=== PATIENT | female | born 1990 | race African-American/Black ===

== ENCOUNTER 2017-04-01 07:47 | Emergency (ER) | payer MEDICAID ==
[~2017-04-01] VITALS: Ht 160 cm; Wt 108.9 kg
[2017-04-01 08:46] LABS: APPEARANCE,URINE SLIGHTLY CLOUDY; KETONES,URINE NEGATIVE (NEGATIVE); NITRITE,URINE NEGATIVE (NEGATIVE); PH,URINE 6.5 (4.5-8.0); PROTEIN,URINE 1+ (NEGATIVE); UROBILINOGEN,URINE 1 MG/DL (0.0-1.0)
[2017-04-01 08:49] LABS: LEUKOCYTE ESTERASE ,URINE 2+ (NEGATIVE)
[2017-04-01 08:51] LABS: RBC,URINE 0-2 /HPF (0 - 2); SQUAMOUS EPITHELIAL CELL,UR FEW /LPF (NONE/OCC)
[2017-04-01 09:15] VITALS: BP 127/84
[2017-04-01] MEDS ORDERED: Fluconazole 100mg tab ORAL ONE (09:15)
--- NOTE | 2017-04-01 09:17 | Emergency Room Report ---
History of Present Illness General Chief Complaint: Vaginal Source: Patient Present Illness HPI 26-year-old female presents ED for evaluation. Patient states that she notices some vaginal itching for the last several days. Notes white curdish discharge. Denies any recent sexual activity. Denies any dysuria or hematuria. Denies any pain. Denies any fevers or chills. No aggravating or relieving factors. Denies any other associated symptoms Allergies: Coded Allergies: No Known Allergies (Unverified , 05/25/12) Patient History Past Medical History: none Past Surgical History: none Pertinent Family History: none Social History: Denies: alcohol use, drug use, smoking Last Menstrual Period: oct Now: No Immunizations: UTD Reviewed Nursing Documentation: PMH: Agreed, PSxH: Agreed Nursing Documentation-PMH Past Medical History: No Stated History Review of Systems All Other Systems: negative except mentioned in HPI Physical Exam Vital Signs Date Time Temp Pulse Resp B/P Pulse Ox O2 Delivery O2 Flow Rate FiO2 04/01/17 07:49 98.2 84 18 138/95 98 Room Air Sp02 EP Interpretation: reviewed, normal General Appearance: no apparent distress, alert, GCS 15, non-toxic Head: normocephalic, atraumatic Eyes: bilateral eye PERRL, bilateral eye normal inspection ENT: hearing grossly normal, normal pharynx, no angioedema, normal voice Neck: full range of motion, supple/symm/no masses Respiratory: chest non-tender, lungs clear, normal breath sounds, speaking full sentences Cardiovascular #1: regular rate, rhythm, no edema Cardiovascular #2: 2+ carotid (R), 2+ carotid (L), 2+ radial (R), 2+ radial (L) , 2+ dorsalis pedis (R), 2+ dorsalis pedis (L) Gastrointestinal: normal bowel sounds, non tender, soft, non-distended, no guarding, no rebound Genitourinary: normal inspection, no CVA tenderness Musculoskeletal: back normal, gait/station normal, normal range of motion, non- tender Neurologic: alert, oriented x3, responsive, motor strength/tone normal, sensory intact, speech normal Psychiatric: judgement/insight normal, memory normal, mood/affect normal, no suicidal/homicidal ideation Reflexes: 3+ bicep (R), 3+ bicep (L), 3+ tricep (R), 3+ tricep (L), 3+ knee (R) , 3+ knee (L) Skin: normal color, no rash, warm/dry, well hydrated Lymphatic: no adenopathy Medical Decision Making Diagnostic Impression: Primary Impression: Yeast infection ER Course Hospital Course 26-year-old female presents ED complaining of vaginal itching and discharge Differential diagnoses include: UTI, cystitis, STI, candidiasis Clinical course Patient placed on stretcher. After initial history and physical I ordered UA, urine . UA shows some white cells, but no bacteria. no history suggestive of STI. will treat as yeast infection given diflucan in ED Diagnosis - yeast infection Stable and discharged home. Instructed to followup with PMD. Return to ED if symptoms recur or worsen Labs Test 04/01/17 08:00 Urine Color Yellow Urine Appearance Slightly cloudy Urine pH 6.5 (4.5-8.0) Urine Specific [place] 1.015 (1.005-1.035) Urine Protein 1+ (NEGATIVE) Urine Glucose (UA) Negative (NEGATIVE) Urine Ketones Negative (NEGATIVE) Urine Occult Blood Negative (NEGATIVE) Urine Nitrite Negative (NEGATIVE) Urine Bilirubin Negative (NEGATIVE) Urine Urobilinogen 1 MG/DL (0.0-1.0) Urine Leukocyte Esterase 2+ (NEGATIVE) Urine RBC 0-2 /HPF (0 - 2) Urine WBC 5-10 /HPF (0 - 2) Urine Squamous Epithelial Cells Few /LPF (NONE/OCC) Urine Bacteria None /HPF (NONE) Urine HCG, Qualitative Negative Last Vital Signs Date Time Temp Pulse Resp B/P Pulse Ox O2 Delivery O2 Flow Rate FiO2 04/01/17 07:49 98.2 84 18 138/95 98 Room Air Status: improved Disposition: HOME, SELF-CARE Condition: Stable Patient Instructions: Dysuria NICKIE HERR M.D. Apr 01, 2017 09:17
== END 2017-04-01 09:20 | disposition home or self-care (01) ==
LOC: EMR 08:05
DX: B37.9 Candidiasis, unspecified (principal)
CPT/HCPCS: 81003; 81025; 99282

== ENCOUNTER 2017-12-21 11:30 | Emergency (ER) | payer SELFPAY ==
[~2017-12-21] VITALS: Ht 160 cm; Wt 108.9 kg
[2017-12-21 12:08] VITALS: BP 105/66
[2017-12-21] MEDS ORDERED: Lidocaine 2% Visc 15ml soln ORAL ONE (12:45)
[2017-12-21] MEDS ORDERED: Dicyclomine HCl 10mg/5ml oral soln ORAL ONE (12:45)
[2017-12-21] MEDS ORDERED: Mylanta II UD 30ml ORAL ONE (12:45)
--- NOTE | 2017-12-21 12:58 | Emergency Room Report ---
History of Present Illness General Chief Complaint: Nausea, Vomiting, and Diarrhea Source: Patient (Carol Cooper) Present Illness HPI 27 YO Female Pt. presents to the ED c/o N/V/D x 2 days. Patient estimates approximately 4 episodes of vomiting yesterday and 2 loose bowel movements. Patient denies blood in the vomit or stool she denies black tarry stools. Reports that her boyfriend has similar symptoms. She and states the only difference that she's noticed that she has been having some chest pain that she describes as tightness in the chest for the last 2 days. She locates her pain substernally. She denies cough shortness of breath she reports the pain is intermittent. She rates it as 5 out of 10 in severity. 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 Denies claudication she reports right ankle pain 2 days ago. Denies cough, recent URI, ill contacts, long periods of being sedentary. Denies Palpitations, dizziness, Changes in Vision, Sensation, paresthesias, or a sudden severe headache. (Carol Cooper) Allergies: Coded Allergies: No Known Allergies (Unverified , 05/25/12) Patient History Past Medical History: see triage record Past Surgical History: none Pertinent Family History: none Last Menstrual Period: 4-1 Now: No Reviewed Nursing Documentation: PMH: Agreed; PSxH: Agreed (Carol Cooper) Nursing Documentation-PMH Past Medical History: No Stated History (Carol Cooper) Review of Systems All Other Systems: negative except mentioned in HPI (Carol Cooper) Physical Exam Vital Signs Date Time Temp Pulse Resp B/P (MAP) Pulse Ox O2 Delivery O2 Flow Rate FiO2 12/21/17 11:46 99.1 108 18 103/69 98 Room Air 99.1 Sp02 EP Interpretation: reviewed, normal General Appearance: no apparent distress, alert, GCS 15, non-toxic Head: normocephalic, atraumatic Eyes: bilateral eye normal inspection, bilateral eye PERRL ENT: hearing grossly normal, normal voice Neck: full range of motion Respiratory: chest non-tender, lungs clear, normal breath sounds, no rhonchi, no respiratory distress, no wheezing, speaking full sentences Cardiovascular #1: regular rate, rhythm, no edema, normal capillary refill Gastrointestinal: normal bowel sounds - slightly hyperactive in all 4 quadrants , non tender, soft Rectal: deferred Genitourinary: normal inspection, no CVA tenderness Musculoskeletal: back normal, gait/station normal, normal range of motion, non- tender Neurologic: alert, oriented x3, responsive, motor strength/tone normal, sensory intact, normal gait, speech normal, grossly normal Psychiatric: judgement/insight normal Skin: normal color, no rash, warm/dry, well hydrated (Carol Cooper) Medical Decision Making PA Attestation Dr. Alonzo is my supervising Physician whom patient management has been discussed with. (Carol Cooper) Diagnostic Impression: Primary Impression: Nausea, vomiting, and diarrhea Additional Impression: Nonspecific chest pain ER Course 27 YO Female Pt. presents to the ED c/o N/V/D x 2 days. Patient estimates approximately 4 episodes of vomiting yesterday and 2 loose bowel movements. Patient denies blood in the vomit or stool she denies black tarry stools. Reports that her boyfriend has similar symptoms. She and states the only difference that she's noticed that she has been having some chest pain that she describes as tightness in the chest for the last 2 days. She locates her pain substernally. She denies cough shortness of breath she reports the pain is intermittent. She rates it as 5 out of 10 in severity. 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 Denies claudication she reports right ankle pain 2 days ago. Denies cough, recent URI, ill contacts, long periods of being sedentary. Denies Palpitations, dizziness, Changes in Vision, Sensation, paresthesias, or a sudden severe headache. Ddx considered but are not limited to GE, colitis, acute appy, SBO, Cyclical Vomiting secondary to THC, * , Pneumonitis, esophageal injury, PE, GERD just to name a few. Vital signs: pt. is afebrile, oxygenating at 98% rate at triage was 109. H&PE are most consistent with GE most likely viral in etiology, no evidence to suggest acute abdomen on physical exam. ORDERS: -EKG: Inverted T waves in leads 3 , V3, V4 -D-dimer: WNL -Urine Hcg: Negative -CXR: Unremarkable. ED INTERVENTIONS: -1000 NS iv hydration, -Zofran 4mg -Bentyl, Mylanta and viscous lidocaine -Patient is able to tolerate oral fluids. DISCHARGE: At this time pt. is stable for d/c to home. Will provide printed patient care instructions, and any necessary prescriptions. Care plan and follow up instructions have been discussed with the patient prior to discharge. Labs Test 12/21/17 12:15 12/21/17 13:46 12/21/17 14:35 Urine Color Pale yellow Urine Appearance Clear Urine pH 6 (4.5-8.0) Urine Specific [place] 1.010 (1.005-1.035) Urine Protein Negative (NEGATIVE) Urine Glucose (UA) Negative (NEGATIVE) Urine Ketones Negative (NEGATIVE) Urine Occult Blood 1+ (NEGATIVE) Urine Nitrite Negative (NEGATIVE) Urine Bilirubin Negative (NEGATIVE) Urine Urobilinogen Normal MG/DL (0.0-1.0) Urine Leukocyte Esterase 2+ (NEGATIVE) Urine RBC 0-2 /HPF (0 - 2) Urine WBC 5-10 /HPF (0 - 2) Urine Squamous Epithelial Cells Few /LPF (NONE/OCC) Urine Bacteria Few /HPF (NONE) Urine HCG, Qualitative Negative (NEGATIVE) D-Dimer < 0.19 mg/L FEU Sodium Level 137 MMOL/L (136-145) Potassium Level 2.8 MMOL/L (3.5-5.1) Chloride Level 102 MMOL/L (98-107) Carbon Dioxide Level 28 MMOL/L (21-32) Anion Gap 7 mmol/L (5-15) Blood Urea Nitrogen 5 mg/dL (7-18) Creatinine 0.7 MG/DL (0.55-1.30) Estimat Glomerular Filtration Rate > 60 mL/min (>60) Glucose Level 101 MG/DL (74-106) Calcium Level 8.3 MG/DL (8.5-10.1) Total Bilirubin 0.7 MG/DL (0.2-1.0) Aspartate Amino Transf (AST/SGOT) 14 U/L (15-37) Alanine Aminotransferase (ALT/SGPT) 23 U/L (12-78) Alkaline Phosphatase 95 U/L (46-116) Total Protein 8.3 G/DL (6.4-8.2) Albumin 3.8 G/DL (3.4-5.0) Globulin 4.5 g/dL Albumin/Globulin Ratio 0.8 (1.0-2.7) (Carol Cooper) EKG Diagnostic Results EP Interpretation: Dr. Alonzo Rate: tachycardiac - 109 Rhythm: NSR ST Segments: no acute changes Other Impression Inverted T waves in leads 3 , V3, V4 ASA given to the pt in ED: No PA Scribe Text This Interpretation was scribed by ROWAN Cooper. (Carol Cooper) Chest X-Ray Diagnostic Results Chest X-Ray Diagnostic Results : Chest X-Ray Ordered: Yes # of Views/Limited/Complete: 1 View Indication: Chest Pain EP Interpretation: Yes PA Xray: Interpretation reviewed, by supervising MD, and agrees with findings. Interpretation: no consolidation, no effusion, no pneumothorax, no acute cardiopulmonary disease Impression: No acute disease Electronically Signed by: Carol Cooper PA-C (Carol Cooper) Chest X-Ray Diagnostic Results : Electronically Signed by: Florence documentation reviewed by me and is accurate, Nnamdi Alonzo MD. (Nnamdi Alonzo M.D.) Last Vital Signs Date Time Temp Pulse Resp B/P (MAP) Pulse Ox O2 Delivery O2 Flow Rate FiO2 12/21/17 12:08 98.8 84 18 105/66 98 Room Air 98.8 (Carol Cooper) Disposition: HOME, SELF-CARE Condition: Stable Scripts Famotidine (PEPCID) 20 Mg Tablet 20 MG ORAL BEDTIME, #14 TAB 0 Refills Prov: Carol Cooper 12/21/17 Dicyclomine Hcl* (DICYCLOMINE HCL*) 10 Mg Capsule 10 MG PO QID, #9 CAP Prov: Carol CooperA. 12/21/17 Ondansetron Odt* (ZOFRAN ODT*) 4 Mg Tab.rapdis 4 MG ORAL Q6H PRN for Nausea & Vomiting, #10 TAB Prov: Carol CooperA. 12/21/17 Patient Instructions: Nonspecific Chest Pain, [id number] Additional Instructions: Take medications as directed. Follow up with a Primary Care Provider in 3-5 days, even if your symptoms have resolved. --Please review list of primary care clinics, if you do not already have a primary care provider Return sooner to ED if new symptoms occur, or current symptoms become worse. Do not drink alcohol, drive, or operate heavy machinery while taking [ ] as this may cause drowsiness. - Please note that this Emergency Department Report was dictated using [employer] groove machine feeder technology software, occasionally this can lead to erroneous entry secondary to interpretation by the dictation equipment. Carol Cooper Dec 21, 2017 12:58 Nnamdi Alonzo M.D. Dec 22, 2017 14:49
[2017-12-21 13:09] LABS: APPEARANCE,URINE CLEAR; BILIRUBIN, URINE NEGATIVE (NEGATIVE); COLOR,URINE PALE YELLOW; GLUCOSE, URINE (UA) NEGATIVE (NEGATIVE); KETONES,URINE NEGATIVE (NEGATIVE); LEUKOCYTE ESTERASE ,URINE 2+ (NEGATIVE); NITRITE,URINE NEGATIVE (NEGATIVE); PH,URINE 6 (4.5-8.0); PROTEIN,URINE NEGATIVE (NEGATIVE); UROBILINOGEN,URINE NORMAL MG/DL (0.0-1.0)
--- NOTE | 2017-12-21 13:54 | Diagnostic Imaging Report ---
Indication: Chest pain Technique: One view of the chest Comparison: none Findings: Patient's chin obscures the upper mediastinum. The heart size is normal. Lungs and pleural spaces are clear Impression: No acute process
[2017-12-21 15:04] LABS: ALANINE AMINOTRANSFERASE 23 U/L (12-78); ALBUMIN 3.8 G/DL (3.4-5.0); ALBUMIN/GLOBULIN RATIO 0.8 (1.0-2.7); ALKALINE PHOSPHATASE 95 U/L (46-116); ANION GAP 7 mmol/L (5-15); ASPARTATE AMINO TRANSFERASE 14 U/L (15-37); BILIRUBIN,TOTAL 0.7 MG/DL (0.2-1.0); BLOOD UREA NITROGEN 5 mg/dL (7-18); CALCIUM 8.3 MG/DL (8.5-10.1); CARBON DIOXIDE 28 MMOL/L (21-32); CHLORIDE 102 MMOL/L (98-107); CREATININE 0.7 MG/DL (0.55-1.30); POTASSIUM 2.8 MMOL/L (3.5-5.1); SODIUM 137 MMOL/L (136-145)
[2017-12-21] MEDS ORDERED: PEPCID20 MG ORAL (15:48)
[2017-12-21] MEDS ORDERED: DICYCLOMINE HCL10 MG PO (15:48)
[2017-12-21] MEDS ORDERED: ZOFRAN ODT4 MG ORAL (15:48)
[2017-12-21 16:59] VITALS: BP 112/72
== END 2017-12-21 16:59 | disposition home or self-care (01) ==
LOC: EMR 12:23
DX: R11.2 Nausea with vomiting, unspecified (principal); R19.7 Diarrhea, unspecified; R07.9 Chest pain, unspecified
CPT/HCPCS: 36415; 71045; 80053; 81003; 81025; 85379; 93005; 99284

== ENCOUNTER 2019-01-08 09:33 | Emergency (ER) | payer SELFPAY ==
[~2019-01-08] VITALS: Ht 160 cm; Wt 117.5 kg
[~2019-01-08 09:33] MED LIST: DICYCLOMINE HCL10 MG PO; PEPCID20 MG ORAL; ZOFRAN ODT4 MG ORAL
[2019-01-08 09:43] VITALS: BP 126/73
--- NOTE | 2019-01-08 09:44 | NUR ---
ED Nurse Note: Patient is walked in to ER complaining of itchiness all over the body since Monday. Patient is alert and fully oriented with steady gait. Patient was offered to change to gown for the ERMD to assess the skin but patient refused as stating "There is no visible bump or rash. It is just itchiness all over the body. There is no point of changing because I have nothing to show." Patient is consistently scratching her arms and legs while assessment. Patient denied pain but only itchiness. Skin clean and intact and no skin issue note at this time. Patient denied any food allergy or unusual food eaten on Monday which is the symptom started. Patient is calm and cooperative. No cardiac or pulmonary distress noted at this time.
[2019-01-08] MEDS ORDERED: BENADRYL25 MG ORAL (09:56)
[2019-01-08] MEDS ORDERED: PREDNISONE20 MG ORAL (09:57)
[2019-01-08] MEDS ORDERED: HYDROCORTISONE-30 GM TOPIC (09:57)
[2019-01-08 10:00] VITALS: BP 126/73
--- NOTE | 2019-01-08 10:00 | NUR ---
ER DISCHARGE NOTE: Patient is cleared to be discharged per ERMD, pt is aox4, on room air, with stable vital signs. pt was given dc instructions and prescriptions were sent electronically and pharmacy information was provided, pt was able to verbalize understanding, pt id band removed. pt is able to ambulate with steady gait. pt took all belongings.
--- NOTE | 2019-01-08 10:20 | NUR ---
ED Nurse Note: Patient came back and reported that she could not get the medications from pharmacy because she did not bring her Medical card. Prescriptions were provided instead.
--- NOTE | 2019-01-08 14:27 | Emergency Room Report ---
History of Present Illness General Chief Complaint: Skin Rash/Abscess Source: Patient Present Illness HPI Patient reports that on Monday she had used a new hair product on Monday she started to have itching around the hair line region and also later on the upper arms where she feels she might of touch to her self with the chemical Patient was minimally improved with Benadryl otherwise as it persisted she was concerning came to the ER Denies any chest pain or shortness of breath denies any vomiting or diarrhea Patient correlates the contact and the itching closely with the new material that was being used Denies any neck pain denies any fevers or chills Allergies: Coded Allergies: No Known Allergies (Unverified , 05/25/12) Patient History Past Medical History: see triage record Pertinent Family History: none Last Menstrual Period: 12/01/18 Now: No Reviewed Nursing Documentation: PMH: Agreed; PSxH: Agreed Nursing Documentation-PMH Past Medical History: No Stated History Review of Systems All Other Systems: negative except mentioned in HPI Physical Exam Vital Signs Date Time Temp Pulse Resp B/P (MAP) Pulse Ox O2 Delivery O2 Flow Rate FiO2 01/08/19 09:34 98.4 85 20 97 Room Air 01/08/19 09:43 126/73 Sp02 EP Interpretation: reviewed, normal General Appearance: well appearing, no apparent distress Head: normocephalic, atraumatic Eyes: bilateral eye PERRL, bilateral eye EOMI ENT: hearing grossly normal, normal pharynx, TMs + canals normal, uvula midline Neck: full range of motion, supple, no meningismus, no bony tend Respiratory: lungs clear, normal breath sounds, no rhonchi, no respiratory distress, no retraction, no accessory muscle use Cardiovascular #1: normal peripheral pulses, regular rate, rhythm, no edema, no gallop, no JVD, no murmur Gastrointestinal: normal bowel sounds, non tender, soft, no mass, no organomegaly, non-distended, no guarding, no hernia, no pulsatile mass, no rebound Genitourinary: no CVA tenderness Musculoskeletal: normal inspection Neurologic: oriented x3, responsive, production statistical clerk III-XII nml as tested, motor strength/ tone normal, sensory intact Psychiatric: mood/affect normal Skin: other - Some erythema noted just at the hairline on the upper forehead, patient also has rash noted in the upper arms, no obvious dermatomal pattern, there is a mild urticarial appearance to it Lymphatic: normal inspection, no adenopathy Medical Decision Making Diagnostic Impression: Primary Impression: Rash and other nonspecific skin eruption Additional Impression: contact dermatitis ER Course Patient's history and presentation appears to be consistent with contact dermatitis other differentials such as infectious, other reactions considered However patient airway appropriately maintained no obvious signs of shortness of breath Does not appear to be systemic patient treated in the emergency room and will require further outpatient follow-up Last Vital Signs Date Time Temp Pulse Resp B/P (MAP) Pulse Ox O2 Delivery O2 Flow Rate FiO2 01/08/19 10:00 98.6 84 18 126/73 96 Room Air Status: unchanged Disposition: HOME, SELF-CARE Condition: Improved Scripts Hydrocortisone/Aloe Vera 1%* (HYDROCORTISONE-ALOE 1% CREAM*) Y Cr 1 APPLIC TOPIC Q6H PRN for Itching for 7 Days, #30 GM Prov: Mila De La Torre DO 01/08/19 Prednisone* (PREDNISONE*) 20 Mg Tablet 40 MG ORAL DAILY for 4 Days, #8 TAB Prov: Mila De La Torre DO 01/08/19 Diphenhydramine Hcl* (BENADRYL*) 25 Mg Capsule 25 MG ORAL Q6H PRN for Itching, #20 CAP Prov: Mila De La Torre DO 01/08/19 Referrals: NOT CHOSEN IPA/MD,REFERRING (PCP) Patient Instructions: Rash, Contact Dermatitis, [id number] Additional Instructions: Patient is provided with the discharge instructions notified to follow up with primary doctor in the next 2-3 days otherwise return to the er with any worsening symptoms. Please note that this report is being documented using [employer] technology. This can lead to erroneous entry secondary to incorrect interpretation by the dictating instrument. Mila De La Torre DO January 08, 2019 14:27
== END 2019-01-08 10:20 | disposition home or self-care (01) ==
LOC: EMR 10:03
DX: R21 Rash and other nonspecific skin eruption (principal); L25.8 Unspecified contact dermatitis due to other agents
CPT/HCPCS: 99282; J7512

== ENCOUNTER 2020-07-24 16:57 | Emergency (ER) | payer OTHER ==
[~2020-07-24] VITALS: Ht 160 cm; Wt 113.4 kg
[~2020-07-24 16:57] MED LIST changes: +BENADRYL25 MG ORAL; +HYDROCORTISONE-30 GM TOPIC; +PREDNISONE20 MG ORAL
[2020-07-24 17:10] VITALS: BP 146/102
--- NOTE | 2020-07-24 17:10 | NUR ---
ED Nurse Note: pt. came with right wris pain for 1 month and left foot pain for 1 week, no injury reported. pt is AOx4, calm and cooperative to care, VSS, on RA, afebrile on triage.
--- NOTE | 2020-07-24 17:47 | NUR ---
ED Nurse Note: x-ray tech at pt's room
--- NOTE | 2020-07-24 18:03 | Emergency Room Report ---
History of Present Illness General Chief Complaint: Pain Source: Patient Present Illness HPI 29-year-old female with no significant right wrist pain with injury. 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 Also complains of left foot pain reported no injury. Reports that the pain is worse throughout the night after a long day standing on her feet. Has not taken medication for symptom relief. Denies ting ling or numbness. Denies any other injuries. Patient is morbidly obese. Denies . Is neurovascularly intact. Allergies: Coded Allergies: No Known Allergies (Unverified , 05/25/12) COVID-19 Screening Contact w/high risk pt: No Experienced COVID-19 symptoms?: No COVID-19 Testing performed GLASS SELECTOR: No Patient History Past Medical History: see triage record Past Surgical History: none Pertinent Family History: none Now: No Immunizations: UTD Reviewed Nursing Documentation: PMH: Agreed; PSxH: Agreed Nursing Documentation-PMH Past Medical History: No Stated History Review of Systems All Other Systems: negative except mentioned in HPI Physical Exam Vital Signs Date Time Temp Pulse Resp B/P (MAP) Pulse Ox O2 Delivery O2 Flow Rate FiO2 07/24/20 17:02 97.7 84 17 146/102 (117) 99 Room Air Sp02 EP Interpretation: reviewed, normal General Appearance: no apparent distress, alert, GCS 15, non-toxic Eyes: bilateral eye normal inspection, bilateral eye PERRL ENT: hearing grossly normal, normal pharynx, no angioedema, normal voice Neck: full range of motion, supple/symm/no masses Respiratory: chest non-tender, lungs clear, normal breath sounds, speaking full sentences Cardiovascular #1: regular rate, rhythm, no edema Cardiovascular #2: 2+ radial (R), 2+ radial (L), 2+ dorsalis pedis (R), 2+ dorsalis pedis (L) Gastrointestinal: normal bowel sounds, non tender, soft, non-distended, no guarding, no rebound Rectal: deferred Musculoskeletal: back normal, non-tender, swelling - left ankle, other - phalene sign positive Neurologic: alert, motor strength/tone normal, oriented x3, sensory intact, responsive, speech normal Psychiatric: judgement/insight normal, memory normal, mood/affect normal, no suicidal/homicidal ideation Skin: no rash Lymphatic: no adenopathy Procedures Splinting Splinting : Consent: Verbal Location: right wrist Pre-Made Type: velcro Splint: wrist Pre-Proc Neuro Vasc Exam: normal Post-Proc Neuro Vasc Exam: normal Patient Tolerated: Well Complications: None Medical Decision Making PA Attestation ALL Diagnosis and treatment plan reviewed and discussed with my supervising physician Dr. Guzman Diagnostic Impression: Primary Impression: Carpal tunnel syndrome Additional Impression: Foot sprain ER Course 29-year-old female with no significant right wrist pain with injury. 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 Also complains of left foot pain reported no injury. Reports that the pain is worse throughout the night after a long day standing on her feet. Has not taken medication for symptom relief. Denies tingling or numbness. Denies any other injuries. Patient is morbidly obese. Denies . Is neurovascularly intact. Ddx considered but are not limited to: foot fracture, foot sprain, foot contusion, foot strain, wrist strain versus fracture versus sprain. Vital signs: are WNL, pt. is afebrile H&PE are most consistent with: Carpal tunnel syndrome, foot sprain ORDERS: foot Xray, wrist x-ray, Robaxin, Motrin ED INTERVENTIONS: Velcro wrist splint DISCHARGE: At this time pt. is stable for d/c to home. Will provide printed patient care instructions, and any necessary prescriptions. Care plan and follow up instructions have been discussed with the patient prior to discharge. Follow-up with orthopedist, increase mobility, elevate legs. If worsening symptoms emergency room. Patient has Crow bandage at home. Other X-Ray Diagnostic Results Other X-Ray Diagnostic Results #1: X-Ray ordered: Right wrist # of Views/Limited Vs Complete: 3 View Indication: Pain EP Interpretation: Yes PA Xray: Interpretation reviewed, by supervising MD, and agrees with findings. Interpretation: no dislocation, no soft tissue swelling, no fractures Impression: No acute disease Electronically Signed by: Patricia Navarrete PA-C Other X-Ray Diagnostic Results #2: X-Ray ordered: Left foot # of Views/Limited Vs Complete: 3 View Indication: Pain EP Interpretation: Yes PA Xray: Interpretation reviewed, by supervising MD, and agrees with findings. Interpretation: no dislocation, no soft tissue swelling, no fractures Impression: No acute disease Electronically Signed by: Nahal Saheli PA-C Last Vital Signs Date Time Temp Pulse Resp B/P (MAP) Pulse Ox O2 Delivery O2 Flow Rate FiO2 07/24/20 17:10 97.7 17 146/102 99 Room Air 07/24/20 17:02 84 Disposition: HOME, SELF-CARE Condition: Stable Scripts Methocarbamol* (ROBAXIN-500*) 500 Mg Tablet 500 MG ORAL TID PRN for For Pain, #15 TAB 0 Refills Prov: Patricia Wiggins 07/24/20 Ibuprofen (Ibu) 800 Mg Tablet 800 MG PO TID, #30 TAB Prov: Patricia Wiggins 07/24/20 Diclofenac Sodium (VOLTAREN) 100 Gm Gel..gram. 2 GM TP TID, #100 GM Prov: Patricia Wiggins 07/24/20 Referrals: NOT CHOSEN IPA/,REFERRING (PCP) Patient Instructions: Carpal Tunnel Syndrome, Foot Sprain Additional Instructions: Take medication as directed, follow-up with your primary care provider or orthopedist, increase your daily activity level, if worsening symptoms return to the emergency room Patricia Wiggins Jul 24, 2020 18:03
[2020-07-24] MEDS ORDERED: VOLTAREN100 G1 TP (18:04)
[2020-07-24] MEDS ORDERED: ROBAXIN-500MG ORAL (18:04)
[2020-07-24] MEDS ORDERED: IBU800 MG PO (18:04)
--- NOTE | 2020-07-24 18:05 | Diagnostic Imaging Report ---
EXAM: XR Right Wrist Complete, 3 or More Views CLINICAL HISTORY: TRAUMA TECHNIQUE: Frontal, lateral and oblique views of the right wrist. COMPARISON: No relevant prior studies available. FINDINGS: Bones/joints: Unremarkable. No acute fracture. No dislocation. Soft tissues: Distal forearm soft tissue swelling could represent contusion. No radiopaque foreign body. IMPRESSION: 1. Distal forearm soft tissue swelling could represent contusion. 2. No acute osseous abnormality.
--- NOTE | 2020-07-24 18:06 | Diagnostic Imaging Report ---
EXAM: XR Left Foot Complete, 3 or More Views CLINICAL HISTORY: TRAUMA TECHNIQUE: Frontal, lateral and oblique views of the left foot. COMPARISON: No relevant prior studies available. FINDINGS: Bones/joints: Unremarkable. No acute fracture. No dislocation. Soft tissues: Unremarkable. No radiopaque foreign body. IMPRESSION: Unremarkable left foot x-rays.
[2020-07-24 18:14] VITALS: BP 146/102
--- NOTE | 2020-07-24 18:14 | NUR ---
ER DISCHARGE NOTE: Patient is cleared to be discharged per [facility]PA, pt is aox4, on room air, with stable vital signs. pt was given dc and prescription instructions, pt was able to verbalize understanding, pt id band removed. pt is able to ambulate with steady gait. pt took all belongings.
== END 2020-07-24 18:14 | disposition home or self-care (01) ==
LOC: EMR 17:55
DX: G56.01 Carpal tunnel syndrome, right upper limb (principal); S93.602A Unspecified sprain of left foot, initial encounter; E66.01 Morbid (severe) obesity due to excess calories; X58.XXXA Exposure to other specified factors, initial encounter; Y93.89 Activity, other specified; Y92.9 Unspecified place or not applicable; Z68.41 Body mass index [BMI] 40.0-44.9, adult
CPT/HCPCS: 99284